=== PATIENT | male | born 1990 | race Caucasian/White ===

== ENCOUNTER 2018-07-17 18:21 | Emergency (ER) | payer BC ==
[~2018-07-17] VITALS: Ht 185.4 cm; Wt 129.0 kg
[2018-07-17] MEDS ORDERED: AMOXICILLIN500 M2 PO (18:38)
[2018-07-17] MEDS ORDERED: CORTISPORIN OTI10 ML AS (18:38)
[2018-07-17] MEDS ORDERED: TORADOL PO (18:38)
[2018-07-17 18:55] VITALS: BP 132/90
== END 2018-07-17 18:57 | disposition home or self-care (01) | DRG 153 ==
LOC: ED 18:21
DX: H66.92 Otitis media, unspecified, left ear (principal); H60.92 Unspecified otitis externa, left ear; H92.02 Otalgia, left ear; F17.210 Nicotine dependence, cigarettes, uncomplicated; Z96.29 Presence of other otological and audiological implants